=== PATIENT | female | born 1975 | race Caucasian/White ===

== ENCOUNTER 2017-02-01 12:48 | Inpatient (IN) | payer BC, OTHER ==
--- NOTE | 2017-01-31 19:42 | NUR ---
PRN Ativan, Subutex, and Robaxin reassessment Pt is relaxed in bed and reports "I feel a lot better". COWS 5 and CIWA 3.
[~2017-02-01] VITALS: Ht 162.6 cm; Wt 61.2 kg
[2017-02-01] MEDS ORDERED: DICYCLOMINE HCL 20 MG TABLET PO PRN (16:00)
[2017-02-01] MEDS ORDERED: ONDANSETRON 4 MG/2 ML VIAL IM PRN (16:00)
[2017-02-01] MEDS ORDERED: LORAZEPAM 1 MG TABLET PO PRN ×2 (16:00)
[2017-02-01] MEDS ORDERED: MAG HYDROX/AL HYDROX/SIMETH 30 ML LIQUID UDC PO PRN (16:00)
[2017-02-01] MEDS ORDERED: BUPRENORPHINE HCL 2 MG TAB.SUBL SL PRN (16:00)
[2017-02-01] MEDS ORDERED: MIRALAX 17 GM POWD.PACK PO PRN (16:00)
[2017-02-01] MEDS ORDERED: HYDROXYZINE PAMOATE 25 MG CAPSULE PO PRN (16:00)
[2017-02-01] MEDS ORDERED: LOPERAMIDE HCL 2 MG CAPSULE PO PRN ×2 (16:00)
[2017-02-01] MEDS ORDERED: LORAZEPAM 2 MG/1 ML VIAL IM PRN (16:00)
[2017-02-01] MEDS ORDERED: MAGNESIUM HYDROXIDE 30 ML LIQUID UDC PO PRN (16:00)
[2017-02-01 16:58] LABS: *URINE HCG, QUAL NEGATIVE (NEGATIVE)
[2017-02-01 17:02] LABS: *AMPHETAMINE, URINE NEGATIVE (NEGATIVE); *BARBITURATE, URINE NEGATIVE (NEGATIVE); *CANNABINOID, URINE NEGATIVE (NEGATIVE); *COCCAINE, URINE NEGATIVE (NEGATIVE); *OPIATE, URINE NEGATIVE (NEGATIVE); *PHENCYCLIDINE SCREEN,URINE NEGATIVE (NEGATIVE)
[2017-02-01 17:15] VITALS: BP 149/89
[2017-02-01 18:09] LABS: ALANINE AMINOTRANSFERASE 27 U/L (14-59); ALBUMIN 4.2 g/dL (3.4-5.0); ALKALINE PHOSPHATASE 57 U/L (50-136); AMYLASE 36 U/L (25-115); ASPARTATE AMINOTRANSFERASE 28 U/L (15-37); BASOPHILS # (AUTO) 0.1 K/uL (0.0-0.2); BASOPHILS % (AUTO) 0.8 % (0.0-2.0); BILIRUBIN,TOTAL 0.8 mg/dL (0.2-1.0); CALCIUM 9.1 mg/dL (8.5-10.1); CARBON DIOXIDE 30 mmol/L (21-32); CHLORIDE 99 mmol/L (98-107); CREATININE 0.7 mg/dL (0.6-1.3); EOSINOPHILS # (AUTO) 0.1 K/uL (0.0-0.7); GFR 91 mL/min (>60); GLUCOSE 88 mg/dL (74-106); HEMATOCRIT 38.6 % (37.0-47.0); HEMOGLOBIN 13.2 g/dL (12.0-16.0); LIPASE 94 U/L (73-393); LYMPHOCYTES # (AUTO) 2.3 K/uL (0.8-4.8); LYMPHOCYTES % (AUTO) 22.5 % (20.5-51.5); MAGNESIUM 2.3 mg/dL (1.8-2.4); MEAN CORPUSCULAR HEMOGLOBIN 32.1 uug (27.0-31.0); MEAN CORPUSCULAR HGB CONC 34 g/dL (32.0-37.0); MONOCYTES # (AUTO) 0.7 K/uL (0.1-1.30); NEUTROPHILS # (AUTO) 7.1 K/uL (1.8-8.9); NEUTROPHILS % (AUTO) 68.7 % (38.5-71.5); PLATELET COUNT (AUTO) 359 K/uL (150-450); POTASSIUM 3.5 mmol/L (3.5-5.1); SODIUM SERUM 137 mmol/L (136-145); UREA NITROGEN, BLOOD 9 mg/dL (7-18); WHITE BLOOD COUNT (AUTO) 10.3 K/uL (4.0-11.2)
[2017-02-01 18:19] LABS: ETHANOL < 3 MG/DL (0-0)
[2017-02-01] MEDS ORDERED: THIAMINE HCL 200 MG/2 ML VIAL IM ONE (18:30)
[2017-02-01] MEDS: METHOCARBAMOL 750 MG TABLET PO PRN (18:42)
--- NOTE | 2017-02-01 18:42 | NUR ---
PRN Ativan, Subutex, and Robaxin Pt is experiencing chills, flushing, sweating, goosebumps, generalized body pain. COWS 12 and CIWA 6. PRN Ativan, Subutex, and Robaxin administered.
[2017-02-01 18:46] LABS: HIV-1 p24 ANTIGEN NON REACTIVE (NONREACTIVE); HIV-1/2 ANTIBODY NON REACTIVE (NONREACTIVE); THYROID STIMULATING HORMONE 0.537 mIU/mL (0.358-3.740)
--- NOTE | 2017-02-01 19:00 | NUR ---
ADMISSION Pt is a 41 yo female admitted to the [facility] floor at 1700 on 02/01/17 for medically supervised detox. She is A&O x4 and ambulatory with a steady gait. NKA, full code, regular diet. Body check performed by T. She was oriented to the unit. Pt is cooperative and answers all questions appropriately. She does not appear intoxicated. Vitals signs are B/P 149/89, HR 95, RR 16, O2 sat 98%, T 97.9, pain 4/10 body aches. She is 5'4" and weighs 135lb. She has a PMH of HTN, anxiety, and depression. Lung sounds clear, PERRLA, bowel sounds present, skin is intact. History of use Beer 64-96oz per day for the past 30 days. She increased to this amount prior to 30 days ago. Last drink was 8 oz on 01/31/17. She has drank ETOH for 20 years. Percocet 30mg per day for the past year. Last used 22mg on 01/31/17. She has used Opioid's for the past 2 years. Marijuana 0.25g per day for the past 1 year. She has used marijuana on and off for 20 years. Treatment History [place] in [place] in 2005 and 2007 for 21 days. She smokes 1 pack of cigarettes per day. She came to treatment because "I want to get better". Symptoms when she doesn't use include "sweating, hot and cold, anxious, jittery, diarrhea, feel terrible, and insomnia. Pt does not have a primary care physician at home. COWS 12 and CIWA 6 on admission. She is experiencing goose bumps, chills, flushing, body aches, and nasal stuffiness. UDS provided. MD aware of patients admission. Pt educated regarding use of the call light and all questions answered. Bed is down with call light in reach.
[2017-02-01] MEDS ORDERED: PROP10TA10 PO (19:02)
[2017-02-01 20:00] VITALS: BP 111/72
--- NOTE | 2017-02-01 20:00 | NUR ---
1999 Patient received awake, alert and lying in low semi-fowlers position of comfort watching television. Patient responds to nurse's greeting and introduction with, " Oh, hi. I'm doing okay I guess for now". Patient is oriented to person, place, day, date and her personal situation. Reoriented to time. Patient's color is pink and her skin is warm, dry and intact. Patient's lung sounds are clear bilaterally and active bowel sounds are noted X 4 abdominal Quads, per auscultation. Patient states that she has been doing some food snacking and taking fluids ad arya since she arrived at [facility] today, though she is feeling tired overall at this time. Patient states, " Oh but I do feel a lot better now than I did earlier though". Vital signs are: 98.2-81-18 111/72 O2 sat 99%, COWS 5, CIWA 5. Patient moves al her extremities fully WNL. Patient denies any pain or other discomfort and she voices no requests. Patient was admitted on 02/01/17 for :Alcohol (beer) and Opiate ( Percocet) withdrawal and patient states that prn medications given to her by nursing staff, shortly after she arrived on the floor, for c/o symptoms, have made her feel better and patient is presently "comfortable". Bed is locked and in lowest position, bed rails are up X 2 and call light within patient's easy reach.
[2017-02-01] MEDS ORDERED: hydrALAZINE HCL 25 MG TABLET PO PRN (20:15)
--- NOTE | 2017-02-01 20:25 | NUR ---
END OF SHIFT Report provided to [facility]. Pt is lying in bed resting. She a 41 yo female admitted to [facility] today for Opioid and ETHO Dependence. PRNs ordered for the management of withdrawal symptoms. COWS 12 and CIWA 8 on admission. PRN Subutex, Ativan, and Robaxin effective. Last COWS 5 and CIWA 3.
[2017-02-01] MEDS ORDERED: LORAZEPAM 1 MG TABLET PO SCH (21:00)
[2017-02-01] MEDS ORDERED: SHARK LIVER OIL/PETROLAT OINT 60 GM TUBE RC PRN (21:00)
--- NOTE | 2017-02-01 22:14 | NUR ---
PRN MEDICATION: Prn Preparation H ointment CA given per patient's request for her c/o "hemorrhoid discomfort".
[2017-02-02] VITALS (7 sets, daily range): BP systolic 105–149; BP diastolic 69–90
--- NOTE | 2017-02-02 06:30 | NUR ---
0630 Patient slept a total of 8 hours and she had 3 voids and no stools. Total intake was 1,210 ml p.o. Prn medications given noted separately per floor protocol. V/SS afebrile, COWS 5, CIWA 5. Patient is presently sleeping soundly with eyes closed and deep, even unlabored respirations noted at 14. Patient is in stable condition at this time.
--- NOTE | 2017-02-02 07:45 | NUR ---
START OF SHIFT Rcvd client in room, she is A/O x 4, she presents with irritable mood, flat affect, she reports anxiety, fatigue, and leg restlessness, flushed face and fine tremors noted. Encouraged increased fluids as tolerated. Encouraged group therapy attendance. Per mold shifter nurse, client is a 41 year old female admitted for ETOH and prescription opioids withdrawal. She is placed on 4 day Ativan taper and 4 day Subutex taper to start today @ 0900. Last CIWA 5/COWS 5 @ 2200, She had PRN Preparation H ointment [place] for her "hemorrhoid discomfort". She slept 8 hrs. She reports PMH . Anxiety, Depression, Chronic tobacco use, Chronic lower back pain, HTN. Past surgical history Hysterectomy. Client denies any induced-seizure withdrawal. She is full code, regular diet, NKA. Client is on seizure precautions. Side rails up/padded x 2, call light within reach, bed locked in lowest positions. Will continue with plan of care
[2017-02-02] MEDS: FOLIC ACID 1 MG TABLET PO SCH (08:37)
[2017-02-02] MEDS: THIAMINE HCL 100 MG TABLET PO SCH (08:37)
[2017-02-02] MEDS: BUPRENORPHINE HCL 2 MG TAB.SUBL SL SCH ×3 (08:37→20:52)
[2017-02-02] MEDS: LORAZEPAM 1 MG TABLET PO SCH ×3 (08:37→20:52)
[2017-02-02] MEDS: AMLODIPINE 5 MG TABLET PO SCH (08:37)
[2017-02-02] MEDS: MULTIVITAMINS,THERAPEUTIC TABLET PO SCH (08:38)
[2017-02-02] MEDS ORDERED: TUBERCULIN,PURIF.PROT.DERIV. 5 TU/0.1 ML TEST ID ONE (09:00)
[2017-02-02] MEDS: ONDANSETRON ODT 4 MG TAB.RAPDIS SL PRN ×2 (10:09→20:27)
--- NOTE | 2017-02-02 10:09 | NUR ---
PRN ZOFRAN 4MG Client reports 1 episode of emesis and nausea, Zofran 4mg administered, risk/benefits discuss. Will continue to monitor. Call light within reach.
--- NOTE | 2017-02-02 11:09 | NUR ---
REASSESSMENT PRN ZOFRAN 4MG Client reports no more episode of emesis and relief from nausea, Zofran 4mg effective. Will continue to monitor. Call light within reach.
--- NOTE | 2017-02-02 11:43 | NUR ---
Peripheral IV on R hand 22G x 1 attempt.
[2017-02-02] MEDS: IV D5 1/2 NS 1000 ML 1,000 ML IV PRN (12:46)
--- NOTE | 2017-02-02 19:17 | NUR ---
ND OF SHIFT: Client is on 4 day Ativan/4 day Subutex taper , Last CIWA 7/ 8. She continues to present with flat affect and depressed mood. She is on IV fluid therapy D5% 1/2NS Inge 125mL/hr for hydration, peripheral IV on R hand 22G patent, dressing intact She denies any SI/HI. PRN Zofran for emesis x 1, noted effective. Adequate intake and output. She was compliant with 1/3 of group therapy. She is full code, regular diet, NKA. Client is on seizure precautions. Side rails up/padded x 2, call light within reach, bed locked in lowest positions. Endorsed to incoming nurse.
--- NOTE | 2017-02-02 19:20 | NUR ---
START OF SHIFT NOTE Received repot from day shift nurse. Pt is 41 y o female, admitted on 02/01/17 for ETOH (32-96 oz of beer a day for 3 months) and opioid (Percocet 30 mg daily for 1 yr). t is on 4 day Ativan 4 day Subutex tapers both started 02/02/17. Pt in room, reports mild anxiety and irritability, noted minimal tremors fingertip to fingertip. Skin intact, warm, flushed; pt reports chills and minimal sweating. Pt reports stomach cramps, reported n/v during day shift, but denies n/v at this time. Pt encouraged to report any exacerbation of stomach cramps or nausea. Pupils PERRLA 3 mm bilat. Pt denies tingling/ itching. Pt reports body aches /10. RR unlabored, lung sounds clear bilat. Heart rate regular. Bowel sounds active x 4, last BM 02/02/17. Pt denies urinary difficulties. Pt has PIV to right hand 22 G infusing D5W at 125ml/ hr d/t vomiting. IV site without swelling or redness, IV intact, patent. Pt is to receive taper medication at scheduled time. PMH of anxiety, depression, HTN. VS taken and recorded. Pt if full code, regular diet, NKA. Fall and seizure precautions in place. Side rails up x 2, call light within reach, bd locked in lowest position. Will continue with plan of care.
--- NOTE | 2017-02-02 20:27 | NUR ---
PRN ZOFRAN Pt came back from smoking patio, c/o severe nausea and one episode of vomiting. Administered Zofran 4 mg ODT. Will continue to monitor
[2017-02-02] MEDS: ACETAMINOPHEN 325 MG TABLET PO PRN (20:52)
--- NOTE | 2017-02-02 20:58 | NUR ---
REASSESSMENT OF ZOFRAN; PRN TYLENOL Pt in bed, states nausea subsided. Encouraged to maintain small sips of water frequently as tolerated. Pt reports increase in lower back pain intensity to 5/10. Administered Tylenol PO 650 mg prn as ordered Warm pack applied to lower back for comfort. Fall and seizure precautions in place, will continue to monitor
--- NOTE | 2017-02-02 21:45 | NUR ---
REASSESSMENT OF TYLENOL Pt in bed, resting quietly. RR unlabored at 16 breaths per minute. Pt states lower back ache decreased to 2/10 and "feels uncomfortable but warm compress helps". All needs met at this time, will continue to monitor
[2017-02-03] VITALS: BP 131/75
[2017-02-03] MEDS: CLONIDINE HCL 0.1 MG TABLET PO PRN ×2 (02:44→10:41)
[2017-02-03] MEDS: METHOCARBAMOL 750 MG TABLET PO PRN (02:44)
[2017-02-03] MEDS: diphenhydrAMINE 50 MG CAPSULE PO PRN (02:44)
--- NOTE | 2017-02-03 02:45 | NUR ---
PRN CLONIDINE, ROBAXIN, BENADRYL Pt c/o sweats, anxiety, chills, body aches 6/10, insomnia and nightmares upon falling asleep. BP 108/67. Administered Clonidine 0.2 mg PO prn for sweats/ chills/ anxiety; Benadryl 50 mg PO prn for sleep, and Robaxin 750 mg PO prn for muscle aches. Fall and seizure precautions in place. Will continue to monitor
[2017-02-03 04:00] VITALS: BP 142/87
--- NOTE | 2017-02-03 04:00 | NUR ---
REASSESSMENT pt in bed, states anxiety decreased, reports decrease in chills, still minimal sweating noted, pt states body aches decreased to 2/10. Pt reports she feels sleepy. VS taken and recorded. CIWA =4, COWS =6 at this time.
[2017-02-03] MEDS: IV D5 1/2 NS 1000 ML 1,000 ML IV PRN (06:52)
--- NOTE | 2017-02-03 07:31 | NUR ---
END OF SHIFT NOTE Pt is 41 y o female, admitted on 02/01/17 for ETOH (32-96 oz of beer a day for 3 months) and opioid (Percocet 30 mg daily for 1 yr). pt is on day 2 of 4 day Ativan 4 day Subutex tapers both started 02/02/17. Pt presented with withdrawal s/s of: anxiety, nausea, one episode of vomiting, body aches, tremors, chills, sweats. All taper medications were administered as ordered. Pt also received prn Zofran at 2026, Tylenol at 2057; Benadryl, Clonidine and Robaxin at 244. VSS. Last COWS 6, CIWA 4 at 0. Pt still has PIV 22 G to r hand infusing D51/2NS at 125 ml/hr. Pt slept for 8 hrs. PO intake 1000 ml, urine x 3. Pt on fall and seizure precautions. PMH on anxiety, depression, HTN. Report endorsed to day shift.
--- NOTE | 2017-02-03 07:57 | NUR ---
START OF SHIFT Rcvd client in room, she is A/O x 4, she presents with depressed mood, flat affect, she reports anxiety, fatigue, chills, nausea and leg restlessness, flushed face and fine tremors noted. She is on IV fluid therapy for hydration D5%, 1/2NS 125mL/hr, peripheral IV 22G on R hand patent, dressing intact. Encouraged increased fluids as tolerated. Encouraged group therapy attendance. Per pricing specialist nurse, admitted for ETOH and prescription opioids withdrawal. She is placed on 4 day Ativan taper and 4 day Subutex taper tolerating well. Last CIWA 6 @ 0400, She slept 8 hrs. PMH Anxiety, Depression, Chronic tobacco use, Chronic lower back pain, HTN. Past surgical history Hysterectomy. Client denies any induced-seizure withdrawal. She is full code, regular diet, NKA. Client is on seizure precautions. Side rails up/padded x 2, call light within reach, bed locked in lowest positions. Will continue with plan of care
[2017-02-03] MEDS: THIAMINE HCL 100 MG TABLET PO SCH (08:25)
[2017-02-03] MEDS: FOLIC ACID 1 MG TABLET PO SCH (08:25)
[2017-02-03] MEDS: LORATADINE 10 MG TABLET PO SCH (08:25)
[2017-02-03] MEDS: LORAZEPAM 1 MG TABLET PO SCH ×3 (08:26→16:30)
[2017-02-03] MEDS: AMLODIPINE 5 MG TABLET PO SCH (08:26)
[2017-02-03] MEDS: ACETAMINOPHEN 325 MG TABLET PO PRN (08:26)
[2017-02-03] MEDS: MULTIVITAMINS,THERAPEUTIC TABLET PO SCH (08:26)
--- NOTE | 2017-02-03 08:26 | NUR ---
PRN TYLENOL Client reports body aches 4/10, Tylenol 650mg PO administered. Risk/benefits discuss, she verbalized understanding. Call light within reach. Will continue to monitor.
[2017-02-03 08:28] VITALS: BP 107/62
[2017-02-03] MEDS ORDERED: BUPRENORPHINE HCL 2 MG TAB.SUBL SL SCH (09:00)
--- NOTE | 2017-02-03 09:26 | NUR ---
REASSESSMENT PRN TYLENOL Client reports relief from body aches 0/10, Tylenol 650mg effective. Risk/benefits discuss, she verbalized understanding. Call light within reach. Will continue to monitor.
--- NOTE | 2017-02-03 10:41 | NUR ---
PRN CLONIDINE Client with irritable mood, she is anxious manifested by increased BP141/93, P94, she reports chills, skin moist. Clonidine 0.1mg PO administered, risk/benefits discuss. call light within reach.
--- NOTE | 2017-02-03 11:00 | NUR ---
Per Dr. Waller to d/c peripheral IV on R hand, client verbalized understanding. No bleeding noted at site once 22G removed.
--- NOTE | 2017-02-03 11:41 | NUR ---
REASSESSMENT PRN CLONIDINE Client reports feeling a little bit better after clonidine administration, but I still feel anxious. Breathing relaxation technique instituted, returned demonstration. P 80. Call light within reach.
[2017-02-03 12:08] LABS: HCV AB <0.1 s/co ratio (0.0-0.9); HEPATITIS B CORE AB, IgM Negative (Negative); HEPATITIS B SURFACE AG Negative (Negative)
[2017-02-03 13:00] VITALS: BP 134/80
[2017-02-03] MEDS: DICYCLOMINE HCL 20 MG TABLET PO SCH ×2 (14:20→21:00)
[2017-02-03] MEDS: CLONIDINE HCL 0.1 MG TABLET PO SCH (14:21)
[2017-02-03] MEDS: BUPRENORPHINE HCL 2 MG TAB.SUBL SL SCH (14:21)
[2017-02-03 16:31] VITALS: BP 133/80
--- NOTE | 2017-02-03 19:19 | NUR ---
END OF SHIFT: Client is on 4 day Ativan/4 day Subutex taper to help manage s/s of w/d, Last CIWA 5/COWS 4. she is with flat affect and depressed mood, reports chills. She denies any SI/HI. PRN Tylenol for body aches 4/10, effective 0/10, Clonidine for irritability, anxiety and chills, noted effective. Adequate intake and output. She is compliant with group therapy. She is full code, regular diet, NKA. Client is on seizure precautions. Side rails up/padded x 2, call light within reach, bed locked in lowest positions. Endorsed to incoming nurse.
--- NOTE | 2017-02-03 19:45 | NUR ---
Start of Shift Note: Report received from day shift nurse. Pt is a 41 yo female admitted on 02/01/17 for medically-supervised withdrawal from ETOH and Percocet. Pt reports drinking 32-96oz beer daily for 3 months and taking Percocet 30mg daily for 1 year. Pt is on day 2 of 4-day Subutex and Ativan tapers. Last day shift COWS=4, CIWA=5. Pt is on a regular diet. Pt reports nkda/nkfa. Pt reports med hx: HTN, anxiety, depression. Pt is currently in bed with eyes closed. Respirations are even and unlabored. No s/s of acute distress noted. Pt did not attend evening H&I, but did attend two earlier in the day. Will continue to monitor.
[2017-02-03 20:00] VITALS: BP 105/62
--- NOTE | 2017-02-03 20:28 | NUR ---
PRN Milk of Magnesia/Miralax Reassessment Pt states that she has not had a BM since PRN Miralax administration. Medication not effective. PRN Milk of Magnesia administered as ordered. Will endorse reassessment to day shift nurse. Addendum: 02/05/17 at 0114 by CASSIDY CHEUNG RN disregard note. wrong date entered
--- NOTE | 2017-02-03 21:00 | NUR ---
21:00 Bentyl Non-Admin: Pt refuses scheduled 21:00 Bentyl. Pt states that she is no longer experiencing stomach cramps. Will continue to monitor.
[2017-02-04] VITALS: BP 131/63
--- NOTE | 2017-02-04 00:10 | NUR ---
21:00 Medications Late: Pt sleeping and difficult to arouse during 21:00 med pass. VS WNL, no distress noted. Dr Waller made aware and allowed to administer 21:00 medications when pt wakes up.
[2017-02-04] MEDS: BUPRENORPHINE HCL 2 MG TAB.SUBL SL SCH ×4 (00:12→20:30)
[2017-02-04] MEDS: LORAZEPAM 1 MG TABLET PO SCH ×4 (00:12→20:29)
[2017-02-04] MEDS: ACETAMINOPHEN 325 MG TABLET PO PRN (00:13)
[2017-02-04] MEDS: CLONIDINE HCL 0.1 MG TABLET PO SCH ×4 (00:13→20:29)
--- NOTE | 2017-02-04 00:13 | NUR ---
PRN Tylenol: Pt c/o sore throat. Pt is afebrile, VS WNL. Administered PRN Tylenol as ordered. Will continue to monitor.
--- NOTE | 2017-02-04 01:15 | NUR ---
Reassessment: Pt is in bed with eyes closed. Respirations are even and unlabored. No s/s of acute distress noted. PRN Tylenol effective. All safety precautions are in place. Will continue to monitor.
[2017-02-04 04:00] VITALS: BP 82/50
--- NOTE | 2017-02-04 07:14 | NUR ---
End of Shift Note: Pt is a 41 yo female admitted to [facility] on 02/01/17 for medically-supervised withdrawal from ETOH and opiates. Pt reports drinking 32-96oz beer daily for 3 months and taking Percocet 30mg daily for 1 year. Pt is to start day 3 of 4-day Subutex and Ativan tapers. Scheduled medication regime effectively managed s/s of withdrawal this shift, and COWS and CIWA scores decreased from 4 & 4 to 1 & 2. PRN Tylenol was given for sore throat. Pt is on a regular diet. Pt reports nkda/nkfa. Pt reports med hx: HTN, anxiety, depression. V/S stable throughout shift, with pt reporting fatigue and then extreme anxiety upon awakening. Total fluid intake this shift: 798 ml; output: urine x 3 and BM x 0. Pt currently in bed and slept 9 hours this shift. Pt endorsed to day shift nurse.
--- NOTE | 2017-02-04 07:30 | NUR ---
START OF SHIFT Received report from third shift lieutenant nurse. 41 year old female patient admitted on 02/01/17 for ETOH and Opiate (Percocet) withdrawals. Pt is A/O x4. NKA reported. Hx of HTN, anxiety, and depression. Pt is on a 4 day Ativan and Subutex taper, and is tolerating well. Pt ambulates with steady gait. Skin remains warm, dry and intact. PRN Tylenol was administered at night and it was effective. V/S remain WNL. Pt slept for 8 hours. Most recent COWS 1, CIWA 2 at 0400. Pt remains calm, compliant and cooperative with care. All needs met at this time. Safety precautions are in place, will continue to monitor.
[2017-02-04 08:16] VITALS: BP 121/75
[2017-02-04] MEDS: FOLIC ACID 1 MG TABLET PO SCH (08:36)
[2017-02-04] MEDS: THIAMINE HCL 100 MG TABLET PO SCH (08:36)
[2017-02-04] MEDS: MULTIVITAMINS,THERAPEUTIC TABLET PO SCH (08:36)
[2017-02-04] MEDS: buPROPion SR 100 MG TABLET.SA PO SCH (08:36)
[2017-02-04] MEDS: AMLODIPINE 5 MG TABLET PO SCH (08:36)
[2017-02-04] MEDS: LORATADINE 10 MG TABLET PO SCH (08:36)
[2017-02-04] MEDS: DICYCLOMINE HCL 20 MG TABLET PO SCH ×3 (08:37→21:00)
--- NOTE | 2017-02-04 08:43 | NUR ---
PPD NEGATIVE PPD read and 0 mm induration, no redness noted. TB test is negative.
[2017-02-04 13:14] VITALS: BP 134/74
--- NOTE | 2017-02-04 14:56 | NUR ---
PRN MIRALAX Pt complains of constipation. Encouraged activity, ambulating, and adequate hydration, ineffective. PRN Miralax administered as ordered.
[2017-02-04 17:16] VITALS: BP 109/68
--- NOTE | 2017-02-04 19:29 | NUR ---
END OF SHIFT Endorsed to shift mgr nurse. 41 year old female patient admitted on 02/01/17 for ETOH and Opiate (Percocet) withdrawals. Pt is A/O x4. Hx of HTN, anxiety, and depression. Pt is on a 4 day Ativan and Subutex taper, and is tolerating well. Pt ambulates with steady gait. Skin remains warm, dry and intact. PRN Miralax administered for constipation and not effective. Most recent COWS 5, CIWA 2. Pt remains calm, compliant and cooperative with care. All needs met at this time. Safety precautions are in place, shift mgr will continue to monitor.
--- NOTE | 2017-02-04 19:50 | NUR ---
Start of Shift Note: Report received from day shift nurse. Pt is a 41 yo female admitted on 02/01/17 for medically-supervised withdrawal from ETOH and Percocet. Pt reports drinking 32-96oz beer daily for 3 months and taking Percocet 30mg daily for 1 year. Pt is on the third day of 4-day Subutex and Ativan tapers. Last day shift COWS=5, CIWA=2. Pt is on a regular diet. Pt reports NKDA/NKFA. Pt reports med hx: HTN, anxiety, depression. Pt is currently in group and attended all 3 sessions today. Will continue to monitor.
[2017-02-04 20:00] VITALS: BP 111/64
--- NOTE | 2017-02-04 20:28 | NUR ---
PRN Milk of Magnesia/Miralax Reassessment Pt states that she has not had a BM since PRN Miralax administration. Medication not effective. PRN Milk of Magnesia administered as ordered. Will endorse reassessment to day shift nurse.
--- NOTE | 2017-02-04 21:00 | NUR ---
Landy Refused: Pt refuses 21:00 scheduled Bentyl. Pt states that she is not experiencing stomach cramps. Will continue to monitor.
--- NOTE | 2017-02-05 | NUR ---
V/S Refused: Pt refuses 00:000 V/S, COWS, and CIWA. Pt states that she wants to sleep. Pt educated on risks and benefits but still refused. All safety precautions are in place. Will continue to monitor. Addendum: 02/05/17 at 0054 by CASSIDY CHEUNG RN Amended: Links added.
--- NOTE | 2017-02-05 04:00 | NUR ---
Vitals Refused: Pt refuses vitals as ordered. Pt verbalizes wanting to sleep. Pt educated on risks and benefits and still refuses. COWS and CIWA deferred. Will continue to monitor. Addendum: 02/05/17 at 0428 by CASSIDY CHEUNG RN Amended: Links added.
--- NOTE | 2017-02-05 07:30 | NUR ---
START OF SHIFT Received report from shift production supervisor nurse. 41 year old female patient admitted on 02/01/17 for ETOH and Opiate (Percocet) withdrawals. Pt is A/O x4. Hx of HTN, anxiety, and depression. Pt is on a 4 day Ativan and Subutex taper, and is tolerating well. Pt remains compliant with care plan. Pt ambulates with steady gait. Skin remains warm, dry and intact. PRN MOM administered for constipation and not effective. Most recent COWS 4, CIWA 3. Pt refused Bentyl and states she has no cramps. V/S remain WNL. Pt remains calm and cooperative with care. RR even and unlabored. Pt socializes with peers and attends group activity. All needs met at this time. Safety precautions are in place, shift production supervisor will continue to monitor.
--- NOTE | 2017-02-05 07:30 | NUR ---
End of Shift Note: Pt is a 41 yo female admitted to [facility] on 02/01/17 for medically-supervised withdrawal from ETOH and opiates. Pt reports drinking 32-96oz beer daily for 3 months and taking Percocet 30mg daily for 1 year. Pt is complete 4-day Subutex and Ativan tapers today. Scheduled medication regime effectively managed s/s of withdrawal this shift, and COWS (4) and CIWA (3) scores remained low. PRN Milk of Mag was given for constipation. Pt is on a regular diet. Pt reports nkda/nkfa. Pt reports med hx: HTN, anxiety, depression. V/S stable throughout shift. Total fluid intake this shift: 1200 ml; output: urine x 4 and BM x 0. Pt currently in bed and slept 9 hours this shift. Pt endorsed to day shift nurse.
[2017-02-05 08:01] VITALS: BP 133/68
[2017-02-05] MEDS: FOLIC ACID 1 MG TABLET PO SCH (08:45)
[2017-02-05] MEDS: THIAMINE HCL 100 MG TABLET PO SCH (08:45)
[2017-02-05] MEDS: buPROPion SR 100 MG TABLET.SA PO SCH (08:45)
[2017-02-05] MEDS: BUPRENORPHINE HCL 2 MG TAB.SUBL SL SCH ×2 (08:45→20:22)
[2017-02-05] MEDS: LORAZEPAM 1 MG TABLET PO SCH ×2 (08:46→20:21)
[2017-02-05] MEDS: DICYCLOMINE HCL 20 MG TABLET PO SCH ×3 (08:46→20:23)
[2017-02-05] MEDS: LORATADINE 10 MG TABLET PO SCH (08:46)
[2017-02-05] MEDS: MULTIVITAMINS,THERAPEUTIC TABLET PO SCH (08:46)
[2017-02-05] MEDS: AMLODIPINE 5 MG TABLET PO SCH (08:46)
[2017-02-05] MEDS: CLONIDINE HCL 0.1 MG TABLET PO SCH ×3 (08:47→20:23)
[2017-02-05] MEDS: ACETAMINOPHEN 325 MG TABLET PO PRN ×2 (08:52→20:28)
--- NOTE | 2017-02-05 08:52 | NUR ---
PRN TYLENOL Pt c/o of 2/10 headache and 3/10 lower back pain. PRN Tylenol administered as ordered will reassess.
--- NOTE | 2017-02-05 09:52 | NUR ---
REASSESSMENT Pt denies pain at this time. Tylenol was effective.
[2017-02-05] MEDS ORDERED: MAGNESIUM CITRATE 296 ML BOTTLE PO PRN (12:45)
[2017-02-05] MEDS ORDERED: BISACODYL 5 MG TABLET.DR PO PRN (12:45)
[2017-02-05] MEDS ORDERED: NICOTINE POLACRILEX 4 MG GUM-PK OF TEN BC PRN (12:45)
[2017-02-05 12:56] VITALS: BP 133/84
[2017-02-05] MEDS: DOCUSATE SODIUM 250 MG CAPSULE PO SCH (13:59)
[2017-02-05 17:41] VITALS: BP 110/67
--- NOTE | 2017-02-05 19:13 | NUR ---
END OF SHIFT Endorsed to integrated circuit layout designer nurse. 41 year old female patient admitted on 02/01/17 for ETOH and Opiate (Percocet) withdrawals. Pt is A/O x4. Hx of HTN, anxiety, and depression. Pt is on a 4 day Ativan and Subutex taper, and is tolerating well. Pt remains compliant with care plan. Pt ambulates with steady gait. Skin remains warm, dry and intact. Most recent COWS 4, CIWA 3. Mag Citrate was administered and effective pt reports BM x1. V/S remain WNL. PRN Tylenol administered as ordered and effective. Pt remains calm and cooperative with care. RR even and unlabored. Pt socializes with peers and attends group activity. All needs met at this time. Safety precautions are in place, integrated circuit layout designer will continue to monitor.
[2017-02-05 20:00] VITALS: BP 112/74
--- NOTE | 2017-02-05 20:00 | NUR ---
Start of Shift Patient is a 41-year old, female, admitted for ETOH and Opiate (Percocet) Dependence. Pt is on a 4-day Ativan and 4-day Subutex tapers, started 02/02/2017 and is tolerating well. Pt is AAOx4, no anxiety nor SOB noted. Pt ambulates with steady gait. No skin issues. Fall, universal and safety prec implemented. Call light within reach. Kept pt warm, dry and comfortable. Last COWS=4, CIWA=2. Will monitor.
--- NOTE | 2017-02-05 20:29 | NUR ---
RN note Tylenol PRN Pt c/o headache=03/08. Administered Tylenol 650 mg PO. No SOB noted. Will monitor and reassess.
--- NOTE | 2017-02-05 21:40 | NUR ---
RN note reassess Pt verbalized pain level=2/10. Tylenol effective.
[2017-02-05] MEDS: diphenhydrAMINE 50 MG CAPSULE PO PRN (23:52)
--- NOTE | 2017-02-05 23:57 | NUR ---
RN note PRN Benadryl Pt c/o inability to sleep. Administered Benadryl 50 mg PO. No SOB noted. Will monitor and reassess.
[2017-02-06] VITALS: BP 115/70
--- NOTE | 2017-02-06 01:10 | NUR ---
RN note reassess Pt asleep on bed, with no facial grimacing nor SOB noted.
[2017-02-06 04:00] VITALS: BP 123/72
--- NOTE | 2017-02-06 07:10 | NUR ---
Start of Shift Report from night nurse: pt is 41 y/o Female here for Etoh r/t Beer 32-96oz for 3 months, opiates r/t Percocet 30mg PO per day for 1 yr; 4 day Ativan and Subutex tapers ordered. Pt is a full code, regular diet, NKA, fall and seizure precautions ordered. HHx; HTN, Anxiety and Depression. V/S stable. Skin is intact. PRN Benadryl given last night. Pt refused erika scheduled Clonidine last night. No recommendations or abnormal labs endorsed to me. last COWS 3 CIWA 2. Pt is in room asleep. Will cont. to monitor the pt.
--- NOTE | 2017-02-06 07:19 | NUR ---
End of Shift Patient is a 41-year old, female, admitted for ETOH and Opiate (Percocet) Dependence. Pt is on a 4-day Ativan and 4-day Subutex tapers, started 02/02/2017 and is tolerating well. Pt is AAOx4, no anxiety nor SOB noted. Pt ambulates with steady gait. No skin issues. Fall, universal and safety prec implemented. Call light within reach. Kept pt warm, dry and comfortable. Last COWS=3, CIWA=2, slept for 8 hours. Endorsed to AM shift nurse for continuity of care.
[2017-02-06 08:00] VITALS: BP 126/79
[2017-02-06] MEDS: DICYCLOMINE HCL 20 MG TABLET PO SCH ×3 (09:00→20:59)
[2017-02-06] MEDS ORDERED: BUPRENORPHINE HCL 2 MG TAB.SUBL SL SCH (09:00)
[2017-02-06] MEDS: CLONIDINE HCL 0.1 MG TABLET PO SCH (09:00)
--- NOTE | 2017-02-06 09:00 | NUR ---
Medication Non-Administration Pt refused the Clonidine 0.1mg and Bentyl 20mg PO since she states it makes her too drowsy.
[2017-02-06] MEDS: THIAMINE HCL 100 MG TABLET PO SCH (09:31)
[2017-02-06] MEDS: DOCUSATE SODIUM 250 MG CAPSULE PO SCH (09:31)
[2017-02-06] MEDS: NICOTINE 7 MG/24HR PATCH TD SCH (09:31)
[2017-02-06] MEDS: MULTIVITAMINS,THERAPEUTIC TABLET PO SCH (09:31)
[2017-02-06] MEDS: buPROPion SR 100 MG TABLET.SA PO SCH (09:32)
[2017-02-06] MEDS: LORATADINE 10 MG TABLET PO SCH (09:32)
[2017-02-06] MEDS: AMLODIPINE 5 MG TABLET PO SCH (09:32)
[2017-02-06] MEDS: IBUPROFEN 600 MG TABLET PO PRN ×2 (09:32→23:48)
[2017-02-06] MEDS: FOLIC ACID 1 MG TABLET PO SCH (09:32)
--- NOTE | 2017-02-06 09:50 | NUR ---
PRN Medications Administration Pt c/o HOYOS 5/10 pain and states that she wants to stop smoking and is compliant with the Nicotine patch scheduled at 0900 and applied as ordered; educated pt on Adverse Rxns of smoking while having the patch on, PRN Nicotine gum 4mg given PRN as ordered, PRN Ibuprofen 600mg given for HOYOS. Will reassess in 30 minutes-1H.
--- NOTE | 2017-02-06 10:20 | NUR ---
Reassessment Pt is getting ready to go to group and states the her HOYOS has been relieved and no cravings to smoke quite yet; Ibuprofen and Nicotine supplements are effective. Will cont. to monitor the pt.
[2017-02-06 12:00] VITALS: BP 131/84
[2017-02-06] MEDS ORDERED: MULT-24 PO (12:32)
[2017-02-06] MEDS ORDERED: Ibuprofen PO (12:32)
[2017-02-06] MEDS ORDERED: NICO4GUM BC (12:32)
[2017-02-06] MEDS ORDERED: AMLO5TAB2 PO (12:32)
[2017-02-06] MEDS ORDERED: NICO1PAT46 TD (12:32)
[2017-02-06] MEDS ORDERED: LORA-114 PO (12:32)
[2017-02-06] MEDS ORDERED: BUPR100T6 PO (12:32)
[2017-02-06] MEDS ORDERED: HYDR-3895 PO (12:32)
--- NOTE | 2017-02-06 15:00 | NUR ---
Medication Non-Administration Pt refused the Bentyl 20mg due at 1500H.
[2017-02-06 16:00] VITALS: BP 128/76
[2017-02-06 18:22] LABS: *AMPHETAMINE, URINE NEGATIVE (NEGATIVE); *BARBITURATE, URINE NEGATIVE (NEGATIVE); *CANNABINOID, URINE NEGATIVE (NEGATIVE); *COCCAINE, URINE NEGATIVE (NEGATIVE); *OPIATE, URINE NEGATIVE (NEGATIVE); *PHENCYCLIDINE SCREEN,URINE NEGATIVE (NEGATIVE)
--- NOTE | 2017-02-06 19:28 | NUR ---
End of Shift Report to night nurse: pt is 41 y/o female here for Etoh r/t Beer 32-96oz for 3 months, opiates r/t Percocet 30mg PO per day for 1 yr; 4 day Ativan and Subutex tapers ordered. Pt is a full code, regular diet, NKA, fall and seizure precautions ordered. HHx: Smoker, HTN, Anxiety and Depression. V/S stable. Skin is intact. PRN Ibuprofen 600mg fo HOYOS, and Nicotine gum 4mg given once. New Orders for D/C tomorrow and urine specimen obtained. Pt refused Clonidine and Bentyl both ordered at 0900 and Bentyl at 1500. Pt attended group therapy and activities. Pt denies chest pain and no SOB present. No hallucinations, delusions or suicidal ideations present. Last COWS 2 CIWA 1
--- NOTE | 2017-02-06 19:29 | NUR ---
Start of shift note Received report from day shift nurse. Pt is a 41 yo male, A+Ox4, presenting to [facility] for ETOH/Opiate dependence. Pt has NKA, is Full Code Status, and on Regular diet. Pt is on fall and Seizure precautions. Pt has HX of HTN, Anxiety, and Depression. Pt has completed 4 day Subutex and Ativan tapers and is due for discharge tomorrow. No s/s of distress noted at this time. Respirations even and unlabored. Will continue to monitor. Addendum: 02/07/17 at 0626 by DARWIN FELTON LVN [facility], Pt is a 41 yo Female
[2017-02-06 20:21] VITALS: BP 132/71
[2017-02-06] MEDS ORDERED: CLONIDINE HCL 0.1 MG TABLET PO PRN (21:00)
[2017-02-06] MEDS: diphenhydrAMINE 50 MG CAPSULE PO PRN (23:48)
--- NOTE | 2017-02-06 23:49 | NUR ---
RN note PRN Benadryl and Motrin Pt c/o headache=5/10 and inabllity to sleep. Administered Motrin 600 mg PO and Benadryl 50 mg PO. Will monitor and reassess.
--- NOTE | 2017-02-07 00:40 | NUR ---
PRN Benadryl and Motrin Reassessment Medications effective. No s/s of pain/distress noted at this time. Pt is resting well in bed. Respirations even and unlabored. Will continue to monitor.
[2017-02-07 00:56] VITALS: BP 119/58
[2017-02-07 04:07] VITALS: BP 124/78
--- NOTE | 2017-02-07 07:10 | NUR ---
End of shift note Pt is a 41 yo female, A+Ox4, presenting to [facility] for ETOH/Opiate dependence. Pt has NKA, is Full Code Status, and on Regular diet. Pt is on fall and Seizure precautions. Pt has HX of HTN, Anxiety, and Depression. Pt has completed 4 day Subutex and Ativan tapers and is due for discharge today. Pt was given PRN Benadryl and Motrin @5099. Pt slept for a total of 8 HRS. Last COWS: 1 and Last CIWA: 2 @0400. No s/s of distress noted at this time. Respirations even and unlabored. Will endorse to day shift nurse.
--- NOTE | 2017-02-07 07:10 | NUR ---
Start of Shift Report from night nurse: pt is 41 y/o Female here for Etoh r/t Beer 32-96oz for 3 months, opiates r/t Percocet 30mg PO per day for 1 yr; 4 day Ativan and Subutex tapers ordered. Pt is a full code, regular diet, NKA, fall and seizure precautions ordered. HHx; HTN, Anxiety and Depression. V/S stable. Skin is intact. PRN Benadryl and Motrin given last night. Pt is to be d/c'd today this morning to "[facility] rehab last COWS 1 CIWA 2. Pt is awake in room and getting dressed. Will cont. to monitor the pt.
[2017-02-07 08:00] VITALS: BP 160/100
[2017-02-07] MEDS: buPROPion SR 100 MG TABLET.SA PO SCH (08:06)
[2017-02-07] MEDS: THIAMINE HCL 100 MG TABLET PO SCH (08:06)
[2017-02-07 08:07] VITALS: BP 160/100
[2017-02-07] MEDS: AMLODIPINE 5 MG TABLET PO SCH (08:07)
[2017-02-07] MEDS: MULTIVITAMINS,THERAPEUTIC TABLET PO SCH (08:07)
[2017-02-07] MEDS: FOLIC ACID 1 MG TABLET PO SCH (08:07)
[2017-02-07] MEDS: LORATADINE 10 MG TABLET PO SCH (08:07)
[2017-02-07] MEDS: DICYCLOMINE HCL 20 MG TABLET PO SCH (09:00)
[2017-02-07] MEDS: DOCUSATE SODIUM 250 MG CAPSULE PO SCH (09:00)
[2017-02-07] MEDS: NICOTINE 7 MG/24HR PATCH TD SCH (09:00)
--- NOTE | 2017-02-07 11:00 | NUR ---
Discharge Pt is A&O x4, ambulatory independently. Features symmetrical, PERRLA 3, no HOYOS, dizziness or N/V present. Pt denies chest pain, V/S stable. No SOB present. Skin is intact. No s/sx of w/d r/t detox present. Pt is given belongings, d/c summary report, written Rx's & No home medications brought. Pt is chaperoned to the parking lot with a tech to the [employer] transportation to the rehab called "[facility]" facility.
== END 2017-02-07 11:00 | disposition other institution (70) | DRG 895 ==
LOC: SRC 15:02
PROVIDERS: ADMIT Internal Medicine; ATTEND Internal Medicine
PROC: HZ2ZZZZ Detoxification Services for Substance Abuse Treatment (ICD-10-PCS; principal; 2017-02-01)
PROC: HZ31ZZZ Individual Counseling for Substance Abuse Treatment, Behavioral (ICD-10-PCS; 2017-02-02)
PROC: HZ41ZZZ Group Counseling for Substance Abuse Treatment, Behavioral (ICD-10-PCS; 2017-02-03)
DX: F10.230 Alcohol dependence with withdrawal, uncomplicated (principal); F11.23 Opioid dependence with withdrawal; Y90.9 Presence of alcohol in blood, level not specified; Z81.1 Family history of alcohol abuse and dependence; Z81.8 Family history of other mental and behavioral disorders; F17.210 Nicotine dependence, cigarettes, uncomplicated; I10 Essential (primary) hypertension; F41.9 Anxiety disorder, unspecified; F32.9 Major depressive disorder, single episode, unspecified; J30.2 Other seasonal allergic rhinitis; G89.29 Other chronic pain; M54.5 Low back pain; K59.03 Drug induced constipation; F12.90 Cannabis use, unspecified, uncomplicated; E86.0 Dehydration
CPT/HCPCS: 36415; 70030-TC; 80307; 83690; 83735; 84443; 84703; 85025; 86592; 86705; 86803; 87340; 87806; A4663; A9150; G6040-TC; J3411; J3490; J7070; Q0162; Q0163